=== PATIENT | female | born 1975 | race Caucasian/White ===

== ENCOUNTER 2016-07-03 20:44 | Emergency (ER) | payer MEDICARE, MEDICAID ==
[2016-07-03 21:22] VITALS: BP 127/108
--- NOTE | 2016-07-03 21:51 | UC ---
General HPI - HPI Summary HPI Summary: 40 yo prison resident with severe MR, recent treatment of breast cancer, started on tamoxifen 2 weeks ago. Overnight last night had 1 cup of emesis at about 0200, and 2 episodes since then, yielding another cup of undigested food and one smaller amount. She had a large normal stool this morning, and has had 3 wet depends today, about normal for her. Temps normal today at home, but increased here to 100.6. History of seizure disorder, and had seizures complicating chemotherapy several months ago, with decision made to discontinue chemotherapy. Dr. Hearn is her PMD, and Dr. Irby is her local oncologist. Otherwise, overall normal day, with sips of oral intake, apple sauce taken. - History of Current Complaint Stated Complaint: VOMITTING Time Seen by Provider: 07/03/16 21:12 Hx Obtained From: Family/[employer] - here with mother and one of her aides. Onset/Duration: Gradual Onset, Lasting Hours - about 20 hours. Onset Severity: Mild Current Severity: Mild Associated Signs & Symptoms: Positive: Fever - onset of low grade fever this evening., Recent Medication Changes - start of tamoxifen, Vomiting - Allergy/Home Medications Allergies/Adverse Reactions: Allergies Allergy/AdvReac Type Severity Reaction Status Date / Time Amoxicillin Allergy Unknown Verified 07/03/16 21:01 Reaction Details Home Medications: Home Medications Acetaminophen TAB* [Tylenol TAB*] 650 mg PO Q4H PRN 07/03/16 [History Confirmed 07/03/16] Ciloxan 0.3 % Seye Onit 07/03/16 [History] Ibuprofen TAB* [Advil TAB*] 200 mg PO Q6H PRN 07/03/16 [History Confirmed ] Ondansetron HCl [Zofran 8 MG TAB] 8 mg PO Q8H PRN 07/03/16 [History Confirmed ] Tamoxifen TAB* [Nolvadex*] 20 mg PO DAILY 07/03/16 [History Confirmed 07/03/16] PMH/Surg Hx/FS Hx/Imm Hx - Additional Past Medical History Additional PMH: severe developmental delay with seizures. Previously Healthy: No Cancer History Of: Reports: Breast Cancer - Also had hysterectomy for possible ovarian cancer--healed well. - Surgical History Surgical History: Yes Surgery Procedure, Year, and Place: Salter osteotomy of left hip 1979. Extropia eye surgery 1980. Adductor tentomy of left hip 1985. Posterior spinal fusion T3-L5 1990. right mastectomy 2015 - Family History Known Family History: Positive: Unknown - unable to verbalize, family history not available. - Social History Occupation: Disabled Lives: [employer] Alcohol Use: None Substance Use Type: None Smoking Status (MU): Never Smoked Tobacco Review of Systems Constitutional: Fever Skin: Other - recuperated well post breast cancer treatment. Eyes: Negative ENT: Negative Respiratory: Negative Cardiovascular: Negative Gastrointestinal: Vomiting, Other - decreased oral intake. Genitourinary: Negative Motor: Negative Neurovascular: Negative Musculoskeletal: Negative Neurological: Other - history of seizures, last was several months ago. Psychological: Negative All Other Systems Reviewed And Are Negative: Yes Physical Exam Triage Information Reviewed: Yes Appearance: Ill-Appearing, Thin, Other: - Seated in wheelchair, wards off examiner, dislikes being touched. Vital Signs: Initial Vital Signs Temp 100.6 F 07/03/16 21:09 Pulse 123 07/03/16 21:09 BP 127/108 07/03/16 21:09 Pulse Ox 98 07/03/16 21:09 Vital Signs Reviewed: Yes Eye Exam: Normal ENT: Positive: TMs normal - partly obscured by cerumen, Other: - could not see tonsils. Neck: Positive: Supple, Nontender, No Lymphadenopathy Respiratory: Positive: Lungs clear, Normal breath sounds Cardiovascular: Positive: RRR, No Murmur Abdomen Description: Positive: Nontender, No Organomegaly - as best as could be determined from seated exam Bowel Sounds: Positive: Present Musculoskeletal: Positive: Other: - diffuse decrease in muscle tone. Neurological: Positive: Fatigued - opens eyes, no verbal response. Skin Exam: Normal Diagnostics - Laboratory Diagnostic Studies Completed/Ordered: UA shows trace blood and protein, negative nitrites and leukocytes. Course/Dx - Course Course Of Treatment: vomiting, could be viral, or could be a side effect of tamoxifen. Urine will be cultured. continue zofran and push fluids. - Differential Dx - Multi-Symptom Provider Diagnoses: vomiting NYD. possible side effect of tamoxifen Discharge - Discharge Plan Condition: Stable Disposition: HOME Patient Education Materials: Acute Nausea and Vomiting (ED), Clear Liquid Diet (ED) Additional Instructions: Continue a clear liquid diet until vomiting subsides. Given zofran tonight before bed, and every 6 to 8 hours as needed. If vomiting continues and urine output decreases, I urge an emergency room assessment. Persistent elevated temperature over [address] be reported to Dr. Hearn or to Dr. Irby. Urine culture will be available on Tuesday and we will make a good effort to call the report to the home. If you do not hear from us, please call Tuesday morning (05 July 2016) Follow up with Dr. Irby regarding tamoxifen and possibility of gi side effects secondary to it.
== END 2016-07-03 22:25 | disposition home or self-care (01) ==
LOC: UCCORT 20:44
DX: R11.10 Vomiting, unspecified (principal); R50.9 Fever, unspecified; F72 Severe intellectual disabilities; Z85.3 Personal history of malignant neoplasm of breast; Z88.1 Allergy status to other antibiotic agents
CPT/HCPCS: 81003; 87077; 87086; 99211; G0463

== ENCOUNTER 2016-10-05 10:12 | Emergency (ER) | payer MEDICARE, MEDICAID ==
[2016-10-05 10:50] VITALS: BP 123/89
--- NOTE | 2016-10-05 11:17 | UC ---
Lower Extremity/Ankle HPI - HPI Summary HPI Summary: right foot pain x 1 day pt. with the hx of CP , no injury was reported by the staff. pt. is having difficulty waling, , no swelling, no redness - History of Current Complaint Chief Complaint: UCLowerExtremity Stated Complaint: FOOT PAIN Time Seen by Provider: 10/05/16 10:58 Hx Obtained From: Patient Hx Last Menstrual Period: 09/29/15 ?: No Onset/Duration: Sudden Onset, Lasting Days - 1, Still Present Severity Initially: Moderate Severity Currently: Moderate Aggravating Factor(s): Standing, Ambulation Alleviating Factor(s): Rest Able to Bear Weight: Yes - Allergies/Home Medications Allergies/Adverse Reactions: Allergies Allergy/AdvReac Type Severity Reaction Status Date / Time Amoxicillin Allergy Unknown Verified 07/03/16 21:01 Reaction Details PMH/Surg Hx/FS Hx/Imm Hx Psychological History: Bipolar Disorder - Surgical History Surgical History: Yes Surgery Procedure, Year, and Place: Salter osteotomy of left hip 1979. Extropia eye surgery 1980. Adductor tentomy of left hip 1985. Posterior spinal fusion T3-L5 1990. right mastectomy 2015; hysterectomy oopherectomy 2015 - Family History Known Family History: Positive: Unknown - unable to verbalize, family history not available. Negative: Diabetes - Social History Alcohol Use: None Substance Use Type: None Smoking Status (MU): Never Smoked Tobacco Review of Systems Constitutional: Negative Skin: Negative Eyes: Negative ENT: Negative All Other Systems Reviewed And Are Negative: Yes Physical Exam Triage Information Reviewed: Yes Completion Of Physical Exam Limited Due To: Other - hx of cp Vital Signs: Initial Vital Signs Temp 98.4 F 10/05/16 10:35 Pulse 92 10/05/16 10:35 Resp 18 10/05/16 10:35 BP 123/89 10/05/16 10:35 Eye Exam: Normal ENT Exam: Normal Neck exam: Normal Respiratory: Positive: Chest non-tender, Lungs clear, Normal breath sounds Cardiovascular: Positive: RRR, No Murmur, Pulses Normal Musculoskeletal: Positive: Other: - right foot: no swellikng, no redness good ROM , + diffuse tenderness Lower Extremity Course/Dx - Differential Dx/Diagnosis Provider Diagnoses: right foot sprain Discharge - Discharge Plan Condition: Stable Disposition: HOME Patient Education Materials: Foot Sprain (ED) Referrals: Ashtyn Hearn MD [Primary Care Provider] - 7 Days Additional Instructions: no fracture seen on the xray
--- NOTE | 2016-10-05 11:37 | RAD ---
INDICATION: Right foot pain COMPARISON: None TECHNIQUE: AP, lateral, and oblique views were obtained. FINDINGS: There is osteopenia. There is no acute bony change. There is a mild hallux valgus deformity. Soft tissues are normal. IMPRESSION: NO ACUTE BONY CHANGE.
== END 2016-10-05 11:51 | disposition home or self-care (01) ==
LOC: UCCORT 10:12
DX: S93.601A Unspecified sprain of right foot, initial encounter (principal); X58.XXXA Exposure to other specified factors, initial encounter
CPT/HCPCS: 99211; G0463

== ENCOUNTER 2018-09-01 11:10 | Emergency (ER) | payer MEDICAID, MEDICARE, OTHER ==
[2018-09-01 12:16] VITALS: BP 114/93
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
== END 2018-09-01 13:19 | disposition home or self-care (01) ==
LOC: UCCORT 11:10
DX: F78 Other intellectual disabilities (principal); V59.59XA Passenger in pick-up truck or van injured in collision with other motor vehicles in traffic accident, initial encounter; Y92.414 Local residential or business street as the place of occurrence of the external cause; Z88.0 Allergy status to penicillin
CPT/HCPCS: 99211; G0463

== ENCOUNTER 2018-11-01 17:42 | Emergency (ER) | payer OTHER ==
[2018-11-01 18:32] VITALS: BP 142/119
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
== END 2018-11-01 18:46 | disposition home or self-care (01) ==
LOC: UCCORT 17:42
DX: Z04.1 Encounter for examination and observation following transport accident (principal); V89.0XXA Person injured in unspecified motor-vehicle accident, nontraffic, initial encounter; Y93.89 Activity, other specified; Y92.9 Unspecified place or not applicable
CPT/HCPCS: 99211; G0463